=== PATIENT | female | born 1990 | race African-American/Black ===

== ENCOUNTER 2017-07-26 16:56 | Emergency (ER) | payer OTHER ==
[~2017-07-26] VITALS: Ht 170.2 cm; Wt 82.0 kg
[2017-07-26 17:14] VITALS: BP 131/85
== END 2017-07-26 18:31 | disposition home or self-care (01) ==
LOC: ED 18:00
DX: S16.1XXA Strain of muscle, fascia and tendon at neck level, initial encounter (principal); V89.2XXA Person injured in unspecified motor-vehicle accident, traffic, initial encounter; Y93.89 Activity, other specified; Y92.89 Other specified places as the place of occurrence of the external cause; Y99.8 Other external cause status
CPT/HCPCS: 72050; 99284